=== PATIENT | male | born 1990 | race Caucasian/White ===

== ENCOUNTER 2017-10-03 00:48 | Emergency (ER) | payer SELFPAY ==
[~2017-10-03] VITALS: Ht 175.3 cm; Wt 76.2 kg
--- NOTE | 2017-10-03 01:13 | NUR ---
PT BIBSELF C/O "RT FLANK PAIN/FEVER X3 DAYS; LAST ALEEVE AT 1800" PT AOX3 RR EVEN AND UNLABORED. NO SOB NOTED. NAD NOTED. PT STATES FEELS NAUSEOUS. PT DENIES HEMATURIA. PT PLACED ON MONITOR. DR ONEAL AT BEDSIDE FOR EVAL.
--- NOTE | 2017-10-03 01:15 | NUR ---
URINE COLLECTED. CALLED LAB FOR [employer].
--- NOTE | 2017-10-03 01:25 | NUR ---
PT TO CT VIA WC.
[2017-10-03] MEDS ORDERED: ONDANSETRON HCL/PF 4 MG/2 ML VIAL ONE (01:27)
[2017-10-03] MEDS ORDERED: ONDANSETRON HCL/PF 4 MG/2 ML VIAL IVP ONE (01:30)
[2017-10-03] MEDS ORDERED: IV NS 0.9% 1,000 ML BAG IV ONE (01:30)
--- NOTE | 2017-10-03 01:34 | NUR ---
PT RETURNED FROM CT.
[2017-10-03 01:37] LABS: CALCIUM, SERUM 8.4 mg/dL (8.5-10.1); CREATININE 0.9 mg/dL (0.6-1.3); POTASSIUM 3.3 mmol/L (3.5-5.1)
[2017-10-03 01:42] LABS: APPEARANCE,URINE CLEAR (CLEAR); BASOPHILS % (AUTO) 0.2 % (0.0-2.0); BILIRUBIN,URINE NEGATIVE (NEGATIVE); BLOOD, URINE NEGATIVE Ery/uL (NEGATIVE); EOSINOPHILS % (AUTO) 1.4 % (0.0-6.0); HEMATOCRIT 33 % (39-51); HEMOGLOBIN 11.8 g/dL (13.5-17.5); KETONES,URINE TRACE (NEGATIVE); LEUKOCYTE ESTERASE ,URINE NEGATIVE (NEGATIVE); LYMPHOCYTES # (AUTO) 1.4 /CMM (0.8-4.8); LYMPHOCYTES % (AUTO) 18.9 % (20.0-44.0); MEAN CORPUSCULAR HGB CONC 35 g/dl (31.0-36.0); MEAN CORPUSCULAR VOLUME 90 fL (80-96); MONOCYTES # (AUTO) 0.8 /CMM (0.1-1.30); MONOCYTES % (AUTO) 10.8 % (2.0-12.0); NEUTROPHILS # (AUTO) 5.1 /CMM (1.8-8.9); NEUTROPHILS % (AUTO) 68.7 % (43.0-81.0); NITRITE, URINE NEGATIVE (NEGATIVE); PLATELET COUNT (AUTO) 166 /CMM (150-450); PROTEIN,URINE NEGATIVE (NEGATIVE); RDW COEFFICIENT OF VARIATION 13.8 (11.5-15.0); RED BLOOD CELL COUNT(AUTO) 3.71 MIL/uL (4.5-6.0); UGLUCOSE NEGATIVE (NEGATIVE); UROBILINOGEN,URINE 0.2 EU/dL (0.2); WHITE BLOOD COUNT (AUTO) 7.4 K/uL (4.3-11.0)
[2017-10-03 01:43] LABS: COLOR,URINE DARK YELLOW (YELLOW)
[2017-10-03 01:45] LABS: BACTERIA,URINE Few /HPF (None Seen); MUCUS,URINE Few /LPF (None Seen); RBC,URINE 0-2 /HPF (0-2); SQUAMOUS EPITHELIAL CELL,UR Rare /HPF (None Seen); WBC,URINE 0-2 /HPF (0-3)
--- NOTE | 2017-10-03 02:19 | NUR ---
Patient is resting comfortably in bed with eyes closed. Easily aroused. VSS
[2017-10-03 02:55] VITALS: BP 118/64
--- NOTE | 2017-10-03 02:55 | NUR ---
IV removed. Catheter intact and site benign. Pressure and 4x4 applied to site. No bleeding noted. Patient discharged to home in stable condition. Written and verbal after care instructions given. Patient verbalizes understanding of instruction. ambulatory with a steady gait
== END 2017-10-03 02:56 | disposition home or self-care (01) ==
LOC: ER 00:51
DX: R10.9 Unspecified abdominal pain (principal); R11.0 Nausea
CPT/HCPCS: 36415; 80048-TC; 81000-TC; 83690-TC; 85025-TC; A4606; J2405; J7030; Z7610